=== PATIENT | male | born 1970 | race African-American/Black ===

== ENCOUNTER 2018-03-05 05:01 | Emergency (ER) | payer MEDICAID ==
[~2018-03-05] VITALS: Ht 170.2 cm; Wt 59.0 kg
[2018-03-05] MEDS ORDERED: ONDANSETRON HCL 4MG/2ML VIAL IV STA (05:38)
[2018-03-05] MEDS ORDERED: SODIUM CHLORIDE 0.9% 1,000 ML IV ONE (05:38)
[2018-03-05] MEDS ORDERED: MORPHINE SULFATE 4 MG/ML CPJ (NOT FOR IM USE) IV STA (05:38)
[2018-03-05 05:57] LABS: BASOPHILS % 0.8 % (0.0-2.0); EOSINOPHILS % 2.7 % (0.0-5.0); HEMATOCRIT. 43.3 % (42.0-52.0); HEMOGLOBIN. 14.6 g/dL (14.0-18.0); LYMPHOCYTES % 17.3 % (20.0-50.0); MEAN CORPUSCULAR HEMOGLOBIN 33.5 pg (28.0-32.0); MEAN CORPUSCULAR VOLUME 99.1 fL (80.0-94.0); MEAN PLATELET VOLUME 9.7 fl (7.4-10.4); NEUTROPHILS % 73.2 % (40.0-76.0); PLATELET 222 x1000/uL (130-400); RED BLOOD CELL COUNT 4.37 mill/uL (4.7-6.1); RED CELL DISTRIBUTION WIDTH 13.1 % (11.6-14.6)
[2018-03-05 06:00] LABS: CHLORIDE 109 mEq/L (98-107)
[2018-03-05 06:01] LABS: CLARITY URINE CLEAR (CLEAR); COLOR URINE YELLOW (YELLOW); KETONES URINE NEGATIVE (NEGATIVE); LEUKOCYTE ESTERASE URINE NEGATIVE (NEGATIVE); NITRITE URINE NEGATIVE (NEGATIVE); OCCULT BLOOD URINE TRACE (NEGATIVE); PROTEIN URINE NEGATIVE (NEGATIVE); SPECIFIC GRAVITY URINE 1.022 (1.005-1.030); UROBILINOGEN URINE 0.2 E.U./dL (0.2-1.0)
[2018-03-05] MEDS ORDERED: IOHEXOL-300 100 ML BOTTLE ONE (07:07)
[2018-03-05] MEDS ORDERED: KETOROLAC 30MG/ML VIAL IV ONE (07:30)
[2018-03-05 08:28] VITALS: BP 124/68
== END 2018-03-05 08:31 | disposition home or self-care (01) ==
LOC: ER 05:01
DX: R07.81 Pleurodynia (principal); R10.9 Unspecified abdominal pain; R53.1 Weakness; R42 Dizziness and giddiness; W19.XXXA Unspecified fall, initial encounter; Y93.89 Activity, other specified; Y92.89 Other specified places as the place of occurrence of the external cause; Y99.8 Other external cause status; F17.200 Nicotine dependence, unspecified, uncomplicated
CPT/HCPCS: 36415; 71045; 71260; 74177; 80053; 81003; 83690; 85025; 86850; 86900; 86901; 93005; 96361; 96374; 96375; 99285; J1885; J2270; J2405; J7030; Q9967

== ENCOUNTER 2019-02-05 11:35 | Emergency (ER) | payer MEDICAID ==
[~2019-02-05] VITALS: Ht 167.6 cm; Wt 59.0 kg
[2019-02-05 12:43] VITALS: BP 108/61
== END 2019-02-05 12:44 | disposition home or self-care (01) ==
LOC: ER 11:35
DX: M77.9 Enthesopathy, unspecified (principal); M19.90 Unspecified osteoarthritis, unspecified site; F17.210 Nicotine dependence, cigarettes, uncomplicated; F12.10 Cannabis abuse, uncomplicated; Z98.890 Other specified postprocedural states
CPT/HCPCS: 99281

== ENCOUNTER 2019-02-22 21:36 | Emergency (ER) | payer MEDICAID ==
[~2019-02-22] VITALS: Ht 177.8 cm; Wt 77.0 kg
[2019-02-22] MEDS ORDERED: BACITRACIN ZINC OINT UDPKT TOP ONE (22:00)
[2019-02-22] MEDS ORDERED: LIDOCAINE 1%/EPI 1:100,000 10 ML VIAL IJ ONE (22:00)
[2019-02-22] MEDS ORDERED: BACITRACIN 15GM TUBE TOP SCH (22:30)
[2019-02-22] MEDS ORDERED: LIDOCAINE HCL/EPINEPHRINE 1%-EPI 1:100,000 20 ML VIAL INFIL NR (22:30)
[2019-02-23] MEDS ORDERED: ACETAMINOPHEN 325MG TABLET PO ONE
[2019-02-23 03:57] VITALS: BP 126/85
== END 2019-02-23 04:00 | disposition home or self-care (01) ==
LOC: ER 21:36
DX: S01.112A Laceration without foreign body of left eyelid and periocular area, initial encounter (principal); J45.909 Unspecified asthma, uncomplicated; F12.10 Cannabis abuse, uncomplicated; Z87.828 Personal history of other (healed) physical injury and trauma; W01.190A Fall on same level from slipping, tripping and stumbling with subsequent striking against furniture, initial encounter; Y93.89 Activity, other specified; Y92.018 Other place in single-family (private) house as the place of occurrence of the external cause
CPT/HCPCS: 12013; 70450; 72125; 99284; J3490

== ENCOUNTER 2019-05-08 08:24 | Emergency (ER) | payer MEDICAID ==
[~2019-05-08] VITALS: Ht 175.3 cm; Wt 70.0 kg
[2019-05-08 08:57] VITALS: BP 133/88
[2019-05-08] MEDS ORDERED: IBUPROFEN 600MG TABLET PO ONE (09:00)
[2019-05-08] MEDS ORDERED: ACETAMINOPHEN WITH CODEINE 300/30MG TABLET PO ONE (09:45)
== END 2019-05-08 09:59 | disposition home or self-care (01) ==
LOC: ER 08:24
DX: M54.6 Pain in thoracic spine (principal); F12.10 Cannabis abuse, uncomplicated; J45.909 Unspecified asthma, uncomplicated
CPT/HCPCS: 71046; 71100; 99283

== ENCOUNTER 2019-09-15 07:33 | Emergency (ER) | payer MEDICAID ==
[~2019-09-15] VITALS: Ht 170.2 cm; Wt 73.0 kg
[2019-09-15] MEDS ORDERED: DICYCLOMINE 10 MG/5 ML ORAL SYR PO STA (08:05)
[2019-09-15] MEDS ORDERED: VISCOUS LIDOCAINE 2% 15 ML UDC PO STA (08:05)
[2019-09-15] MEDS ORDERED: MAGNESIUM/ALUMINUM HYDROXIDE/SIMETHICONE 30ML UDC PO STA (08:05)
[2019-09-15] MEDS ORDERED: ONDANSETRON 4MG ODT PO STA (08:05)
[2019-09-15 10:20] VITALS: BP 123/87
== END 2019-09-15 10:24 | disposition home or self-care (01) ==
LOC: ER 07:33
DX: K29.20 Alcoholic gastritis without bleeding (principal); J45.909 Unspecified asthma, uncomplicated; F17.200 Nicotine dependence, unspecified, uncomplicated
CPT/HCPCS: 99284; Q0162

== ENCOUNTER 2021-07-15 07:27 | Emergency (ER) | payer MEDICAID ==
[~2021-07-15] VITALS: Ht 175.3 cm; Wt 56.0 kg
[2021-07-15 07:35] VITALS: BP 140/76
== END 2021-07-15 07:59 | disposition left against medical advice (07) ==
LOC: ER 07:40
DX: Z53.21 Procedure and treatment not carried out due to patient leaving prior to being seen by health care provider (principal)

== ENCOUNTER 2022-12-21 18:26 | Emergency (ER) | payer MEDICAID, OTHER ==
[~2022-12-21] VITALS: Ht 172.7 cm; Wt 55.0 kg
[2022-12-21 18:33] VITALS: BP 128/89
[2022-12-21] MEDS ORDERED: ACETAMINOPHEN 325MG TABLET PO ONE (19:00)
== END 2022-12-21 19:43 ==
LOC: ER 18:26
DX: M54.50 Low back pain, unspecified (principal); F12.10 Cannabis abuse, uncomplicated; J45.909 Unspecified asthma, uncomplicated
CPT/HCPCS: 99283